=== PATIENT | female | born 1975 | race Two or more races ===

== ENCOUNTER 2018-06-17 00:32 | Emergency (ER) | payer OTHER ==
[~2018-06-17] VITALS: Ht 157.5 cm; Wt 107.5 kg
[~2018-06-17 00:32] MED LIST: ALPR1TAB2 PO; BUPR300T3 PO; BUSP10TA PO; CEFU250T PO; CITA40TA12 PO; ENOX40DI SQ; LEVO750T31 IV; PANT40TA3 PO; POTA20TA12 PO; QUET100T4 PO; QUET50TA5 PO; RIVA10TA PO; TOPI50TA38 PO; VENL150C PO; VENL75TA2 PO; ZOLP5TAB PO
--- NOTE | 2018-06-17 00:35 | ED.ADGEN ---
Past History Past Medical History: Anxiety, Bipolar, Constipation, Schizophrenia, UTI, Other Past Surgical History: Tonsillectomy, Tubal ligation Smoking: Non-smoker Alcohol Use: None Drug Use: None Adult General Chief Complaint Chief Complaint ".. I am having severe pain here on the Lt. lower.. last couple to three days.. " HPI HPI Patient is a 42 year old female who presents with above hx and complaints L. Lower abdomen pain. Pt. localized to lt. lower. Pt. denies hx of renal stones. Has not had a bowel movement for past 3 days. No changes in diet. Does have complaints of interment dysuria. Pt. normally follows with Dr. Mcknight . No hx of travel or specific ill contacts. Pt. states nothing helps the pain. Pt. has past hx of constipation, Bipolar, UTI's, Shizophrenia, Medication over use, and Anxiety disorder. Pt. denies any hx of trauma. No hx of fever. Has had couple episodes of vomiting. Pt did eat today with out vomiting. Review of Systems Review of Systems Constitutional: Denies fever or chills [] Eyes: Denies change in visual acuity, redness, or eye pain [] HENT: Denies nasal congestion or sore throat [] Respiratory: Denies cough or shortness of breath [] Cardiovascular: No additional information not addressed in HPI [] GI: Complaints of Lt. L. quadrant abdominal pain, nausea, vomiting, . Denies bloody stools or diarrhea []Some hx of constipation. : complaints of dysuria Musculoskeletal: Denies back pain or joint pain [] Integument: Denies rash or skin lesions [] Neurologic: Denies headache, focal weakness or sensory changes [] Endocrine: Denies polyuria or polydipsia [] All other systems were reviewed and found to be within normal limits, except as documented in this note. Family History Family History Daughter has had kidney stones. Current Medications Current Medications Current Medications Medications (Trade) Dose Ordered Sig/Amanda Start Time Stop Time Status Last Admin Dose Admin Ceftriaxone Sodium 1 gm/ Sodium Chloride 50 ml @ 100 mls/hr 1X ONCE 06/17/18 02:00 06/17/18 02:30 DC 06/17/18 02:14 100 MLS/HR Ceftriaxone Sodium (Rocephin) 1 gm STK-MED ONCE 06/17/18 02:03 06/17/18 02:05 DC Famotidine (Pepcid Vial) 20 mg 1X ONCE 06/17/18 01:30 06/17/18 01:31 DC 06/17/18 01:31 20 MG Ketorolac Tromethamine (Toradol 30mg Vial) 30 mg 1X ONCE 06/17/18 01:00 06/17/18 01:01 UNV Lactated Ringer's 1,000 ml @ 1,000 mls/hr Q1H 06/17/18 01:30 06/17/18 02:30 DC 06/17/18 01:30 1,000 MLS/HR Magnesium Hydroxide (Milk Of Magnesia) 2,400 mg 1X ONCE 06/17/18 01:30 06/17/18 01:31 DC 06/17/18 01:28 2,400 MG Morphine Sulfate (Morphine 10mg Syringe) 10 mg 1X ONCE 06/17/18 03:15 06/17/18 03:16 DC Sodium Chloride 50 ml @ As Directed STK-MED ONCE 06/17/18 02:03 06/17/18 02:05 DC Tamsulosin HCl (Flomax) 0.4 mg 1X ONCE 06/17/18 03:15 06/17/18 03:16 DC 06/17/18 03:32 0.4 MG Allergies Allergies Allergies Coded Allergies Type Severity Reaction Last Updated Verified No Known Drug Allergies 11/21/14 No Physical Exam Physical Exam Constitutional: Moderate acute distress, non-toxic appearance. [] HENT: Normocephalic, atraumatic, bilateral external ears normal, oropharynx moist, no oral exudates, nose normal. [] Eyes: PERRLA, EOMI, conjunctiva normal, no discharge. [] Neck: Normal range of motion, no tenderness, supple, no stridor. [] Cardiovascular:Heart rate regular rhythm, no murmur [] Lungs & Thorax: Bilateral breath sounds clear to auscultation [] Abdomen: Bowel sounds decreased, soft, lt. Lower tenderness, no masses, no pulsatile masses. Distended.[] Obese. Skin: Warm, diaphoretic, no erythema, no rash. [] Back: No tenderness, no CVA tenderness. [] Extremities: No tenderness, no cyanosis, no clubbing, ROM intact, no edema. [] Neurologic: Alert and oriented X 3, normal motor function, normal sensory function, no focal deficits noted. [] Psychologic: Affect anxious, judgement normal, mood normal. [] Current Patient Data Vital Signs Vital Signs Date Time Temp Pulse Resp B/P (MAP) Pulse Ox O2 Delivery O2 Flow Rate FiO2 06/17/18 03:24 18 96 06/17/18 03:17 68 113/71 (85) Room Air 06/17/18 01:30 98.2 Lab Results Laboratory Tests Test 06/17/18 00:10 06/17/18 00:43 06/17/18 01:34 POC Urine HCG, Qualitative hcg negative (Negative) Urine Collection Type Clean catch Urine Color Yellow Urine Clarity Hazy Urine pH 5.5 Urine Specific [place] 1.025 Urine Protein Trace (NEG-TRACE) Urine Glucose (UA) Neg mg/dL (NEG) Urine Ketones (Stick) 15 mg/dL (NEG) Urine Blood Large (NEG) Urine Nitrite Neg (NEG) Urine Bilirubin Neg (NEG) Urine Urobilinogen Dipstick 0.2 mg/dL (0.2 mg/dL) Urine Leukocyte Esterase Neg (NEG) Urine RBC 6-10 /HPF (0-2) Urine WBC 1-4 /HPF (0-4) Urine Squamous Epithelial Cells Occ /LPF Urine Bacteria Many /HPF (0-FEW) Urine Opiates Screen Neg (NEG) Urine Methadone Screen Neg (NEG) Urine Barbiturates Neg (NEG) Urine Phencyclidine Screen Neg (NEG) Urine Amphetamine/Methamphetamine Pos (NEG) Urine Benzodiazepines Screen Neg (NEG) Urine Cocaine Screen Neg (NEG) Urine Cannabinoids Screen Pos (NEG) Urine Ethyl Alcohol Neg (NEG) White Blood Count 6.2 x10^3/uL (4.0-11.0) Red Blood Count 4.78 x10^6/uL (3.50-5.40) Hemoglobin 13.5 g/dL (12.0-15.5) Hematocrit 40.5 % (36.0-47.0) Mean Corpuscular Volume 85 fL (79-100) Mean Corpuscular Hemoglobin 28 pg (25-35) Mean Corpuscular Hemoglobin Concent 33 g/dL (31-37) Red Cell Distribution Width 14.4 % (11.5-14.5) Platelet Count 234 x10^3/uL (140-400) Neutrophils (%) (Auto) 52 % (31-73) Lymphocytes (%) (Auto) 39 % (24-48) Monocytes (%) (Auto) 7 % (0-9) Eosinophils (%) (Auto) 2 % (0-3) Basophils (%) (Auto) 0 % (0-3) Neutrophils # (Auto) 3.2 x10^3uL (1.8-7.7) Lymphocytes # (Auto) 2.4 x10^3/uL (1.0-4.8) Monocytes # (Auto) 0.4 x10^3/uL (0.0-1.1) Eosinophils # (Auto) 0.1 x10^3/uL (0.0-0.7) Basophils # (Auto) 0.0 x10^3/uL (0.0-0.2) Prothrombin Time 9.9 SEC (9.4-11.4) Prothrombin Time INR 1.0 (0.9-1.1) PTT 24 SEC (23-33) Sodium Level 144 mmol/L (136-145) Potassium Level 3.6 mmol/L (3.5-5.1) Chloride Level 107 mmol/L (98-107) Carbon Dioxide Level 24 mmol/L (21-32) Anion Gap 13 (6-14) Blood Urea Nitrogen 20 mg/dL (7-20) Creatinine 1.5 mg/dL (0.6-1.0) H Estimated GFR (Cockcroft-Gault) 38.1 Glucose Level 136 mg/dL (70-99) H Calcium Level 9.1 mg/dL (8.5-10.1) Total Bilirubin 0.2 mg/dL (0.2-1.0) Direct Bilirubin 0.1 mg/dL (0.0-0.2) Aspartate Amino Transferase (AST) 23 U/L (15-37) Alanine Aminotransferase (ALT) 26 U/L (14-59) Alkaline Phosphatase 114 U/L (46-116) Total Protein 7.5 g/dL (6.4-8.2) Albumin 3.5 g/dL (3.4-5.0) Lipase 256 U/L (73-393) EKG EKG [] Radiology/Procedures Radiology/Procedures My interpretation of acute abd. film= increased stool, non-obstructive pattern. CT shows proximal Lt. renal stone 5 mm. Mild hydronephrosis on Lt. See formal report when available.[] Course & Med Decision Making Course & Med Decision Making Pertinent Labs and Imaging studies reviewed. (See chart for details) Clear fluid diet. Push fluids and Vit. C drinks. Keflex 500 three times a day. Zofran 8 up 4 x day for nausea. Flomax 0.4 daily while have flank pain. Take tylenol and ibuprofen for pain, marked pain take Vicoprofen. Follow up with primary and urology. Save stone if passed. Return if any concerns. [] Final Impression Final Impression 1. Abdomen Pain[] Lt. Lower Quadrant-Renal colic 2. UTI 3. Constipation 4. Renal Stone 5. Urine + Marijuana and Methamphetamine Dragon Disclaimer Dragon Disclaimer This electronic medical record was generated, in whole or in part, using a voice recognition dictation system. CATARINO DONIS MD Jun 17, 2018 00:35
[2018-06-17] MEDS ORDERED: KETOROLAC 30 MG/ML VIAL. IV ONE ×2 (01:00→01:30)
[2018-06-17 01:19] LABS: BACTERIA,URINE MANY /HPF (0-FEW); BARBITURATES NEG (NEG); BENZODIAZEPINES NEG (NEG); BILIRUBIN,URINE NEG (NEG); CANNABINOIDS POS (NEG); CLARITY,URINE HAZY; COCAINE NEG (NEG); COLOR,URINE YELLOW; GLUCOSE,URINE NEG (NEG); METHADONE NEG (NEG); NITRITE,URINE NEG (NEG); OPIATES NEG (NEG); PHENCYCLIDINE NEG (NEG); UROBILINOGEN,URINE 0.2 mg/dL (0.2 mg/dL)
[2018-06-17 01:20] LABS: SQUAMOUS EPITHELIAL CELL,UR OCC /LPF
[2018-06-17 01:21] LABS: AMPHETAMINE/METHAMPHETAMINE POS (NEG)
[2018-06-17] MEDS ORDERED: FAMOTIDINE 20 MG/2 ML VIAL IVP ONE (01:30)
[2018-06-17] MEDS ORDERED: MAGNESIUM HYDROXIDE 2,400 MG/30 ML ORAL.SUSP. PO ONE (01:30)
[2018-06-17] MEDS ORDERED: IV RINGERS SOLUTION,LACTATED 1,000 ML IV SCH (01:30)
[2018-06-17 01:53] LABS: BASO % 0 % (0-3); EOS # 0.1 x10^3/uL (0.0-0.7); EOS % 2 % (0-3); HEMATOCRIT 40.5 % (36.0-47.0); HEMOGLOBIN 13.5 g/dL (12.0-15.5); LYMPH # 2.4 x10^3/uL (1.0-4.8); LYMPH % 39 % (24-48); MEAN CORPUSCULAR HEMOGLOBIN 28 pg (25-35); MEAN CORPUSCULAR HGB CONC 33 g/dL (31-37); MEAN CORPUSCULAR VOLUME 85 fL (79-100); MONO # 0.4 x10^3/uL (0.0-1.1); MONO % 7 % (0-9); NEUT # 3.2 x10^3uL (1.8-7.7); NEUT % 52 % (31-73); PLATELET COUNT 234 x10^3/uL (140-400); RED BLOOD COUNT 4.78 x10^6/uL (3.50-5.40); RED CELL DISTRIBUTION WIDTH 14.4 % (11.5-14.5); WHITE BLOOD COUNT 6.2 x10^3/uL (4.0-11.0)
[2018-06-17] MEDS ORDERED: IV NORMAL SALINE 50ML 50 ML ONE (02:03)
[2018-06-17] MEDS ORDERED: cefTRIAXone SODIUM 1 GM VIAL IV ONE (02:03)
[2018-06-17 02:07] LABS: ALBUMIN 3.5 g/dL (3.4-5.0); CALCIUM 9.1 mg/dL (8.5-10.1); CREATININE 1.5 mg/dL (0.6-1.0); DIRECT BILIRUBIN 0.1 mg/dL (0.0-0.2); GFR 38.1; POTASSIUM 3.6 mmol/L (3.5-5.1); TOTAL BILIRUBIN 0.2 mg/dL (0.2-1.0); TOTAL PROTEIN 7.5 g/dL (6.4-8.2)
--- NOTE | 2018-06-17 02:09 | RAD ---
CT abdomen and pelvis without contrast 06/17/2018 Clinical indication: Severe left-sided abdominal pain, hematuria. COMPARISON: CT abdomen and pelvis 11/21/2017 TECHNIQUE: Multiple CT images of the abdomen and pelvis were obtained without contrast. *One or more of the following individualized dose reduction techniques were utilized for this examination: 1. Automated exposure control. 2. Adjustment of the mA and/or kV according to patient size. 3. Use of iterative reconstruction technique. FINDINGS: Heart size is normal. Visualized lung bases clear. Unenhanced contours of the liver, spleen, adrenal glands and right kidney are grossly unremarkable. Cholelithiasis in a nondilated gallbladder. There is a nonobstructive 5 mm calculus just distal to the left UPJ series 2/image 75 with mild upstream hydroureteronephrosis. Abdominal aorta are normal in caliber. Small and large bowel loops are normal in caliber without obstruction. Appendix is normal in appearance. Mild scattered proximal colonic diverticula without diverticulitis. No abdominal free fluid. Urinary bladder decompressed. Uterus and adnexa are unremarkable. There are no destructive osseous lesions. IMPRESSION: 1. 5 mm obstructive proximal left ureteral calculus with mild upstream hydronephrosis. 2. Cholelithiasis. Electronically signed by: Tank Jade MD (06/17/2018 2:05 AM) [id number]
[2018-06-17] MEDS ORDERED: TAMS0.4C97 PO (02:47)
[2018-06-17] MEDS ORDERED: ONDA8TAB12 PO (02:47)
[2018-06-17] MEDS ORDERED: CEPH-264 PO (02:47)
[2018-06-17] MEDS ORDERED: HYDR-79 PO (02:47)
[2018-06-17] MEDS ORDERED: MORPHINE SULFATE 10 MG/ML SYRINGE. SQ ONE (03:15)
[2018-06-17] MEDS ORDERED: TAMSULOSIN 0.4 MG CAP.ER.24H. PO ONE (03:15)
[2018-06-17 03:17] VITALS: BP 113/71
--- NOTE | 2018-06-17 09:02 | RAD ---
CLINICAL INDICATION: Left lower quadrant pain x 3 days COMPARISON: None. FINDINGS and IMPRESSION: PA view of the chest in an upright position, AP views of the abdomen were obtained in upright and supine positions. No abnormal small or large bowel dilatation. Moderate colonic stool content. No abnormal soft tissue mass effect. An 8 mm linear calcification projects at the left lateral aspect of the left L3 transverse process, nonspecific but may be seen with ureteral calculus. Evaluation for free intraperitoneal gas is limited on this supine exam. IMPRESSION: 1. No evidence for bowel obstruction. 2. Calcification overlying the left abdomen may be a ureteral calculus. Electronically signed by: Brendon Melgar MD (06/17/2018 8:58 AM) [facility]
== END 2018-06-17 03:40 | disposition home or self-care (01) ==
LOC: ER 00:32
DX: N13.2 Hydronephrosis with renal and ureteral calculous obstruction (principal); N39.0 Urinary tract infection, site not specified; K59.00 Constipation, unspecified; F14.90 Cocaine use, unspecified, uncomplicated; F15.90 Other stimulant use, unspecified, uncomplicated; F41.9 Anxiety disorder, unspecified; F31.9 Bipolar disorder, unspecified; F20.9 Schizophrenia, unspecified; Z87.440 Personal history of urinary (tract) infections
CPT/HCPCS: 36415; 74022; 74176; 80048; 80076; 80307; 81001; 81025; 83690; 85025; 85610; 85730; 87086; 87186; 96361; 96365; 96375; 99285; J0696; J1885; J7120; S0028; G0479

== ENCOUNTER 2020-07-08 22:50 | Emergency (ER) | payer MEDICARE, MEDICAID ==
[~2020-07-08] VITALS: Ht 157.5 cm; Wt 106.4 kg
[2020-07-08 22:50] VITALS: BP 122/70
[~2020-07-08 22:50] MED LIST changes: +CEPH-264 PO; +HYDR-1179 PO; +ONDA8TAB12 PO; +TAMS0.4C97 PO
--- NOTE | 2020-07-09 | PHYS DOC ---
Past History Past Medical History: Anxiety, Bipolar, Constipation, Schizophrenia, UTI, Other Past Surgical History: Tonsillectomy, Tubal ligation Smoking: Non-smoker Alcohol Use: None Drug Use: None Adult General Chief Complaint Chief Complaint: SKIN PROBLEM HPI HPI Patient is a 44-year-old female who presents for potential poison aria exposure. Patient reports significant other was seen at our facility status post poison aria exposure within the past 7 days. Patient reports touching significant other and throughout the course of the week, developed concerning skin changes around her bilateral eyes for which she believes is poison aria related. Patient has been applying Benadryl cream and chamomile cream and taking p.o. Benadryl with mild relief in symptomology. She has no changes in vision, fever, or other co ncerning constitutional signs or symptoms of disease. Given location of injury patient was concerned and presented to our ER for evaluation Review of Systems Review of Systems Fourteen body systems of review of systems have been reviewed. See HPI for pertinent positives and negative responses, other hinson all other systems are negative, non-pertinent or non-contributory Allergies Allergies Allergies Coded Allergies Type Severity Reaction Last Updated Verified No Known Drug Allergies 11/21/14 No Physical Exam Physical Exam Constitutional: Well developed, well nourished, no acute distress, non-toxic appearance. Patient has dried chamomile lotion applied to several aspects of face and upper extremities HENT: Normocephalic, atraumatic, bilateral external ears normal, oropharynx moist, no oral exudates, nose normal. Eyes: PERRLA, EOMI, exotropia noted to right eye, conjunctiva normal, no discharge. Mild redness to bilateral lateral portions of eyelids without any focal signs of irritation, inflammation, or exudate. No changes in vision per baseline Neck: Normal range of motion, no tenderness, supple, no stridor. Cardiovascular: Heart rate regular, sinus rhythm, no murmurs rubs or gallops Lungs & Thorax: Bilateral breath sounds clear to auscultation Abdomen: Bowel sounds normal, soft, no tenderness, no masses, no pulsatile masses. Nonsurgical abdomen, no peritoneal signs Skin: Warm, dry, no erythema, no rash. Back: No tenderness, no CVA tenderness. Extremities: No tenderness, no cyanosis, no clubbing, ROM intact, no edema. Neurologic: Alert and oriented X 3, grossly normal motor & sensory function, no focal deficits noted. Psychologic: Affect normal, judgement normal, anxious mood Current Patient Data Vital Signs Vital Signs Date Time Temp Pulse Resp B/P (MAP) Pulse Ox O2 Delivery O2 Flow Rate FiO2 07/08/20 22:50 98.6 108 20 122/70 (87) 98 Room Air EKG EKG [] Radiology/Procedures Radiology/Procedures [] Course & Med Decision Making Course & Med Decision Making ABCs non-concerning Comprehensive history and physical exam obtained Discussed most likely diagnosis of unspecified dermatitis to eye that is non- concerning without any indication for antibiotics or topical steroids, most likely self-limiting I discussed continuing supportive measures such as oatmeal baths and calamine lotion is okay, I advised patient to discontinue topical Benadryl cream and p.o. Benadryl Patient grossly asymptomatic and more anxious about health than anything, I feel she will be fine with continued supportive care and close PCP follow-up in outpatient setting She has good access to her PCP and reports being able to be seen in upcoming 3 to 10 days time for reevaluation Strict return precautions were discussed with good understanding by patient and significant other, all questions and concerns addressed prior to ER departure in stable condition Dragon Disclaimer Dragon Disclaimer This electronic medical record was generated, in whole or in part, using a voice recognition dictation system. Departure Departure: Impression: Primary Impression: Eye problem Additional Impression: Poison aria dermatitis Disposition: 01 HOME/RESIDENCE PRIOR TO ADM Condition: STABLE Referrals: YON CARTER (PCP) Additional Instructions: As discussed prior to ER departure, please follow-up with your primary care physician in upcoming 3 to 5 days time for outpatient follow-up Continue supportive care for your skin problems and poison aria exposure, continue calamine lotion as needed. I recommend including warm soaks to concerning areas and bilateral eyelids daily for continued symptomatic relief Your educated on concerning signs or symptoms that should prompt immediate medical evaluation by her primary care physician or ER if needed, please do not hesitate to call or present in person for thorough evaluation if any of these re-present It was a pleasure to take care of you and I wish you a speedy recovery! Justification of Admission: Justification of Admission: Justification of Admission Dx: N/A Problem Qualifiers GIORGIO PARDO DO Jul 09, 2020 00:00
== END 2020-07-09 00:05 | disposition home or self-care (01) ==
LOC: ER 22:50
DX: L23.7 Allergic contact dermatitis due to plants, except food (principal)
CPT/HCPCS: 99282

== ENCOUNTER 2021-07-19 13:39 | Emergency (ER) | payer MEDICARE, MEDICAID ==
[~2021-07-19] VITALS: Ht 157.5 cm; Wt 101.0 kg
[2021-07-19 14:00] VITALS: BP 112/69
[2021-07-19] MEDS ORDERED: PRED-220 PO (14:08)
--- NOTE | 2021-07-19 14:13 | PHYS DOC ---
Past History Past Medical History: Anxiety, Bipolar, Constipation, Schizophrenia, UTI, Other Past Surgical History: Tonsillectomy, Tubal ligation Smoking: Non-smoker Alcohol Use: None Drug Use: None General Adult EDM: Chief Complaint: SKIN PROBLEM HPI: HPI: Patient is a 45-year-old female being seen in the ER for possible poison sandra to the right side of her face proximal to her right eye. Patient reports that the area of skin proximal to her right eye is itching and she has a small area of redness, no papular lesions or vesicular lesions noted. Patient states that her was diagnosed with poison sandra this morning and she thinks maybe she was exposed to him. 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 Patient denies any treatment prior to arrival. She denies any fevers, eye pain. Review of Systems: Review of Systems: 14 body systems of the review of systems have been reviewed. See HPI for pertinent positive and negative responses, otherwise all other systems are negative, nonpertinent or noncontributory Allergies: Allergies: Allergies Coded Allergies Type Severity Reaction Last Updated Verified No Known Drug Allergies 11/21/14 No Physical Exam: PE: Constitutional: Well developed, well nourished, no acute distress, non-toxic appearance. [] HENT: Normocephalic, atraumatic, bilateral external ears normal, oropharynx moist, no oral exudates, nose normal, scattered erythematous papules approximately 3 noted to patient's chin. [] Eyes: Patient has had a stroke in her right eye and ocular movements not intact, pupils are not equal which is patient's baseline, there is no redness or lesions noted to the eyelid or conjunctiva/sclera, conjunctiva normal, no discharge, patient has a small area of redness less than 0.5 cm in diameter noted to the side of her face proximal to her right eye but no redness is noted to her eyelid [] Neck: Normal range of motion, no stridor Cardiovascular: Normal peripheral perfusion Lungs & Thorax: Normal work of breathing, no tachypnea Abdomen: Obese, soft Skin: Warm, dry, no erythema, no rash. [] Back: Normal range of motion Extremities: No tenderness, no cyanosis, no clubbing, ROM intact, no edema. [] Neurologic: Alert and oriented X 3, normal motor function, normal sensory function, no focal deficits noted. [] Psychologic: Affect normal, judgement normal, mood normal. [] EKG: EKG: [] Radiology/Procedures: Radiology/Procedures: [] Heart Score: C/O Chest Pain: No Risk Factors: Risk Factors: DM, Current or recent (<one month) smoker, HTN, HLP, family history of CAD, obesity. Risk Scores: Score 0 - 3: 2.5% MACE over next 6 weeks - Discharge Home Score 4 - 6: 20.3% MACE over next 6 weeks - Admit for Clinical Observation Score 7 - 10: 72.7% MACE over next 6 weeks - Early Invasive Strategies Course & Med Decision Making: Course & Med Decision Making Pertinent Labs and Imaging studies reviewed. (See chart for details) [] Patient is a 45-year-old female being seen in the ER for possible poison sandra exposure to her face. Patient is reporting papules to her chin and some redness and itching to her skin proximal to her right eye, there is no eyelid redness/lesions/rash/. She denies any eye pain. There is no redness to her sclera or conjunctiva. Patient to be treated with a steroid. Patient advised to follow-up with her primary care provider. I discussed with patient all findings and diagnostic testing as well as the need to follow-up with PCP for further evaluation and treatment or return to the ER if any new or worsening symptoms. Strict return precautions were also discussed at length. Patient voiced understanding and agreement with the plan. Patient is hemodynamically stable at the time of disposition. Cynthia Disclaimer: Cynthia Disclaimer: This electronic medical record was generated, in whole or in part, using a voice recognition dictation system. Departure Departure: Impression: Primary Impression: Poison sandra dermatitis Disposition: HOME / SELF CARE / HOMELESS Condition: GOOD Referrals: YON CARTER (PCP) Patient Instructions: Poison Sandra Additional Instructions: You were seen in the ER today for poison sandra exposure, take steroid as directed. You can take Benadryl for any itching at home. Follow-up with your primary care provider regarding your ER visit. If he develops eye pain, worsening of rash, high fevers refractory to treatment or any new or worsening concerns please return to the ER. EMERGENCY DEPARTMENT GENERAL DISCHARGE INSTRUCTIONS Thank you for coming to [facility] ([facility]) today and trusting us with you care. We trust that you had a positivie experience in our Emergency Department. If you wish to speak to the department management, you may call the director at [phone]. YOUR FOLLOW UP INSTRUCTIONS ARE FOLLOWS: 1. Do you have a private Doctor? If you do not have a private doctor, please ask for a resource list of physicians or clinics that may be able to assist you with follow up care. 2. The Emergency Physician has interpreted your x-rays. The X-Ray specialist will also review them. If there is a change in the findings, you will be notified in 48 h ours when at all possible. 3. A lab test or culture has been done, your results will be reviewed and you will be notified if you need a change in treatment. ADDITIONAL INSTRUCTIONS AND INFORMATION: 1. Your care today has been supervised by a physician who is specially trained in emergency care. Many problems require more than one evaluation for a complete diagnosis and treatment. We recommend that you schedule your follow up appointment as recommended to ensure complete treatment of you illness or injury. If you are unable to obtain follow up care and continue to have a problem, or if your condition worsens, we recommend that you return to the ED. 2. We are not able to safely determine your condition over the phone nor are we able to give sound medical advice over the phone. For these safety reasons, if you call for medical advice we will ask you to come to the ED for further evaluation. 3. If you have any questions regarding these discharge instructions please call the ED at [phone]. SAFETY INFORMATION: In the interest of safety, wellness, and injury prevention; we encourage you to wear your sealbelt, if you smoke; quite smoking, and we encourage family to use a protective helmet for bicycling and other sporting events that present an increased risk for head injury. IF YOUR SYMPTOMS WORSEN OR NEW SYMPTOMS DEVELOP, OR YOU HAVE CONCERNS ABOUT YOUR CONDITION; OR IF YOUR CONDITION WORSENS WHILE YOU ARE WAITING FOR YOUR FOLLOW UP APPOINTMENT; EITHER CONTACT YOUR PRIMARY CARE DOCTOR, THE PHYSICIAN WHOSE NAME AND NUMBER YOU WERE GIVEN, OR RETURN TO THE ED IMMEDIATELY. Scripts Prednisone (PREDNISONE) 10 Mg Tablet 10 MG PO UD for PREDNISONE TAPER, #39 TAB 0 Refills Take 3 tablets by mouth twice a day for 3 days, then take 2 tablets by mouth twice a day for 3 days, then take 1 tablet by mouth twice a day for 3 days, then take 1 tablet by mouth daily x 3 days, then stop. Prov: ILIANA DONOVAN APRN 07/19/21 ILIANA DONOVAN APRN Jul 19, 2021 14:13
== END 2021-07-19 14:25 | disposition home or self-care (01) ==
LOC: ER 13:39
DX: L23.7 Allergic contact dermatitis due to plants, except food (principal); Z59.0 Homelessness; Z90.89 Acquired absence of other organs
CPT/HCPCS: 99283